=== PATIENT | female | born 1995 | race Caucasian/White ===

== ENCOUNTER 2024-12-15 22:52 | Emergency (ER) | payer SELFPAY ==
[2024-12-15 23:12] VITALS: RESP 16; TEMP 97.6
[2024-12-16] LABS: HCG URINE TEST NEGATIVE (NEGATIVE)
[2024-12-16 00:16] LABS: Glucose, Urine Negative (Negative); Protein,Urine Dip Negative (Negative); RBC 0-2 /HPF (0-5)
--- NOTE | 2024-12-16 00:33 | ERPHSYRPT ---
- History of Present Illness Time Seen by Provider: 12/16/24 00:26 Source: patient Exam Limitations: no limitations Patient Subjective Stated Complaint: cyst/abscess to labia Triage Nursing Assessment: Pt brought in by her mother with c/o abscess to rt labia. Pt states, "it's been there x4 days but has been more painful today". Pt tried to drain it earlier tonight but no luck and now she states it's more swollen. There's a small puncture hole in the center of it, approx the size of a small pea. Physician History: Patient is a 29-year-old female with no significant past medical history presents to our ED for evaluation of a "right labial abscess". Patient states symptoms started approximately 4 days ago. Symptoms have gotten progressively worse. Patient attempted to drain the abscess with a needle. Patient believes it drained however the swelling became significantly worse. Patient states the area is even more tender after the attempted drainage. No fever. Patient has some vaginal discharge which she believes is yeast. Patient states she attempted to self treat with a Monistat suppository. No systemic manifestations. Patient otherwise feels well. She voices no other complaints or concerns at this time. Patient declined pain medication. Portions of this note were created with voice recognition technology. There may be grammatical, spelling, punctuation or sound alike errors Timing/Duration: day(s) (4 days) Severity: moderate Modifying Factors: Improves With: nothing Associated Symptoms: denies symptoms Allergies/Adverse Reactions: No Known Drug Allergies Allergy (Unverified 12/15/24 23:12) Hx Tetanus, Diphtheria Vaccination/Date Given: Yes Hx Influenza Vaccination/Date Given: No Hx Pneumococcal Vaccination/Date Given: No Travel Risk - International Travel Have you traveled outside of the country in past 3 weeks: No - Emerging Infectious Disease Are you exhibiting symptoms associated with any current EIDs: No - Review of Systems All Other Systems: Reviewed and Negative - Past Medical History Pertinent Past Medical History: Yes Other Medical History: frequent uti's - Past Surgical History Past Surgical History: No Female Surgical History: Section - Female History Hx Last Menstrual Period: 11/20/24 Hx Now: No - Social History Smoking Status: Never smoker Exposure to second hand smoke: No Drug Use: none - Social Determinants of Health Will the patient participate in the screening: Yes Do you worry about a steady place to live?: No Do you have any problems with any of the following?: No known problems In the past 12 months,have you had to go without utilities?: No Transportation Issues: No Has anyone in your support network made you feel unsafe?: No Have you or anyone in your house had to go w/o enough food: No - Nursing Vital Signs Nursing Vital Signs: Initial Vital Signs Temperature 97.6 F 12/15/24 23:10 Pulse Rate 86 12/15/24 23:10 Respiratory Rate 16 12/15/24 23:10 Blood Pressure 108/70 12/15/24 23:10 O2 Sat by Pulse Oximetry 100 12/15/24 23:10 Pain Scale Pain Intensity 3 - Physical Exam General Appearance: no apparent distress, alert Ears, Nose, Throat Exam: moist mucous membranes Neck Exam: normal inspection, full range of motion Respiratory Exam: normal breath sounds, airway intact, No respiratory distress Gastrointestinal/Abdomen Exam: soft, normal bowel sounds, No tenderness, No mass Pelvic Exam: vaginal discharge, other (Right labia is indurated. No fluctuance. No obvious abscess. No indication for drainage. No foul odor. There is a white cottage cheeselike discharge. No open or draining lesions), No adnexal tenderness, No adnexal mass, No cervical motion tenderness, No vaginal bleeding Back Exam: normal inspection, normal range of motion, No CVA tenderness, No vertebral tenderness Extremity Exam: normal inspection, normal range of motion, pelvis stable Neurologic Exam: alert, oriented x 3, cooperative, normal mood/affect, sensation nml, No motor deficits Skin Exam: normal color, warm, dry, No rash Lymphatic Exam: No adenopathy SpO2 Interpretation: normal SpO2: 98 O2 Delivery: Room Air - Course Nursing assessment & vital signs reviewed: Yes Ordered Tests: Active Orders 24 hr Category Date Time Status CULTURE,URINE Stat Lab 12/15/24 23:45 Received HCG QUALITATIVE, URINE Stat Lab 12/15/24 23:45 Completed UA W/RFX UR CULTURE Stat Lab 12/15/24 23:45 Completed Medication Summary Discontinued Medications Generic Name Dose Route Start Last Admin Trade Name Freq PRN Reason Stop Dose Admin Fluconazole 150 mg 12/16/24 01:49 Fluconazole 150 Mg Tablet PO 12/16/24 01:50 ONCE STA Lab/Rad Data: Laboratory Results 12/15/24 12/15/24 12/15/24 Range/Units 23:45 23:45 23:45 Urine Color (Yellow) Urine Appearance (Clear) Urine pH (4.6-8.0) Ur Specific [place] (1.005-1.030) Urine Protein (Negative) Urine Glucose (UA) (Negative) mg/dL Urine Ketones (Negative) Urine Blood (Negative) Urine Nitrite (Negative) Urine Bilirubin (Negative) Urine Urobilinogen (0.2) mg/dL Ur Leukocyte Esterase (Negative) U Hyaline Cast (Auto) (0-2) /LPF Urine Microscopic RBC (0-5) /HPF Urine Microscopic WBC (0-5) /HPF Ur Epithelial Cells (None Seen) /HPF Urine Bacteria (None Seen) /HPF Urine Culture Reflexed (NO) Urine HCG, Qual NEGATIVE (NEGATIVE) Vaginal Sia Group DETECTED A (NEGATIVE) Sia species NOT DETECTED (NEGATIVE) Chlamydia DNA Probe NOT DETECTED (NEGATIVE) N.gonorrhoeae DNA Probe NOT DETECTED (NEGATIVE) T. vaginalis (PCR) NOT DETECTED (NEGATIVE) Bact vaginosis (PCR) NEGATIVE (NEGATIVE) 12/15/24 Range/Units 23:45 Urine Color Yellow (Yellow) Urine Appearance Clear (Clear) Urine pH 6.0 (4.6-8.0) Ur Specific [place] >=1.030 A (1.005-1.030) Urine Protein Negative (Negative) Urine Glucose (UA) Negative (Negative) mg/dL Urine Ketones Trace A (Negative) Urine Blood Negative (Negative) Urine Nitrite Negative (Negative) Urine Bilirubin Negative (Negative) Urine Urobilinogen 1.0 A (0.2) mg/dL Ur Leukocyte Esterase Small A (Negative) U Hyaline Cast (Auto) NONE SEEN (0-2) /LPF Urine Microscopic RBC 0-2 (0-5) /HPF Urine Microscopic WBC 11-20 A (0-5) /HPF Ur Epithelial Cells Few (None Seen) /HPF Urine Bacteria None Seen (None Seen) /HPF Urine Culture Reflexed YES (NO) Urine HCG, Qual (NEGATIVE) Vaginal Sia Group (NEGATIVE) Sia species (NEGATIVE) Chlamydia DNA Probe (NEGATIVE) N.gonorrhoeae DNA Probe (NEGATIVE) T. vaginalis (PCR) (NEGATIVE) Bact vaginosis (PCR) (NEGATIVE) - Progress Progress: improved Progress Note: Patient is a 29-year-old female with no significant past medical history presents to our ED for evaluation of a "right labial abscess". Patient states symptoms started approximately 4 days ago. Symptoms have gotten progressively worse. Physical exam reveals vaginal discharge consistent with candidiasis. Patient also has right labial cellulitis with induration. Patient has no systemic manifestations. No CMT. No adnexal mass or tenderness. No vaginal open or draining lesions. Laboratory workup reveals a urinary tract infection and candidiasis. Patient received a dose of Bactrim which will cover both the UTI and labial cellulitis. Patient received an oral dose of Diflucan 150 mg for the candidiasis. A prescription for the same was forwarded to patient's pharmacy. Patient declined pain medication. History obtained from patient and mother who is at the bedside. Differential diagnosis includes cellulitis, abscess, foreign body, trauma Complexity of problems addressed is moderate acute complicated. No critical care time. Complexity of data reviewed and analyzed as moderate. Test ordered chest reviewed results analyzed and correlated clinically with history and physical exam. Risk of complication and or risk of morbidity/mortality of patient management is moderate. A prescription for Bactrim and Diflucan forwarded to patient's pharmacy. Vital stable. Time spent to discharge patient is approximately 15 minutes. Plan of care established for shared decision making. No social determinants of health present to impede follow-up. Portions of this note were created with voice recognition technology. There may be grammatical, spelling, punctuation or sound alike errors 12/16/24 01:55 Counseled pt/family regarding: lab results, diagnosis, need for follow-up - Departure Departure Disposition: Home Clinical Impression: UTI (urinary tract infection), Cellulitis of labia, labia induration, Vaginal sia Condition: Stable Critical Care Time: No Referrals: DOCTOR,NO FAMILY [Primary Care Provider, UNKNOWN] - Follow up/PCP as directed Additional Instructions: Discharge/Care Plan JEFFREY RUBI was seen on 12/16/24 in the Emergency Room. The patient was counseled regarding Diagnosis,Lab results, Imaging studies, need for follow up and when to return to the Emergency Room. Prescriptions given: Discharge Note I have spoken with the patient and/or caregivers. I have explained the patient's condition, diagnosis and treatment plan based on the information available to me at this time. I have answered the patient's and/or caregiver's questions and addressed any concerns. The patient and/or caregivers have as good understanding of the patient's diagnosis, condition and treatment plan as can be expected at this point. The vital signs have been stable. The patient's condition is stable and appropriate for discharge from the emergency department. The patient will pursue further outpatient evaluation with the primary care physician or other designated or consulting physician as outlined in the discharge instructions. The patient and/or caregivers are agreeable to this plan of care and follow-up instructions have been explained in detail. The patient and/or caregivers have received these instruction. The patient/and or caregivers are aware that any significant change in condition or worsening of symptoms should prompt an immediate return to this or the closest emergency department or call 911. Prescriptions: Smz/Tmp Ds Tablet [Bactrim Ds Tablet] 1 udtab PO BID 7 Days #14 tablet Fluconazole [Diflucan ] 150 mg PO DAILY 1 Days #1 tablet
[2024-12-16 00:55] LABS: Candida Group DETECTED (NEGATIVE); Candida glab/krus NOT DETECTED (NEGATIVE)
[2024-12-16 01:28] LABS: CHLAMYDIA DNA NOT DETECTED (NEGATIVE)
[2024-12-16] MEDS ORDERED: BACTRIM DS TABLET PO ONE (01:56)
[2024-12-16] MEDS: BACTRIM DS TABLET PO STA (01:57)
[2024-12-16] MEDS ORDERED: Diflucan 100 MG ONE (02:02)
[2024-12-16] MEDS: Diflucan 100 MG PO SCH (02:05)
[2024-12-16] MEDS: DIFLUCAN PO STA (02:06)
[2024-12-16 02:10] VITALS: BP 121/68; PULSE 84; O2SAT 97
== END 2024-12-16 02:10 | disposition home or self-care (01) ==
LOC: ED 22:52
DX: N76.2 Acute vulvitis (principal); N76.4 Abscess of vulva; R23.4 Changes in skin texture; N39.0 Urinary tract infection, site not specified; B37.31 Acute candidiasis of vulva and vagina; Z79.899 Other long term (current) drug therapy